=== PATIENT | male | born 1960 | race Caucasian/White ===

== ENCOUNTER 2023-05-21 02:35 | Day surgery (SDC) | payer BC, SELFPAY ==
[2023-05-14 12:16] VITALS: BMI 23.6
--- NOTE | 2023-05-14 12:20 | PC.NURSE ---
Report to the Outpatient Waiting Room, entrance under the green pavilion located off [facility], at time 0730 on date 05/21/23. Planned Procedure Time: 0830. Time changes happen often and if your time is changed the preop area will call you the afternoon before. - You and your visitor will be asked to self-screen and do not enter if you have any COVID symptoms. - A mask is optional within the hospital at this time. Patients may have LIGHT BREAKFAST. Take the following medications with a SIP of water the morning of surgery: N/A DO NOT STOP ANY OF YOUR OTHER PRESCRIPTION MEDICATIONS PRIOR TO SURGERY ?EXCEPT THE FOLLOWING Medications to discontinue per physician: N/A Date to take last dose: N/A Please no make-up, nail somali, hairspray, perfume, deodorant, or body powder the day of surgery. No jewelry (including any body piercings) or valuables the day of surgery, leave them at home. Please take a shower or bath the night before, or the morning of, surgery with an antibacterial soap. Wear comfortable, loose fitting clothing. - Jewelry must be removed prior to entering the operating room. Rings and piercings that are not removed may be cut off. - The hospital will not accept responsibility for valuables. - Please leave all valuables, including medications, at home the day of surgery. YOU MAY DRIVE YOURSELF HOME AFTER SURGERY. Follow any additional instructions given to you from your surgeon. If you or anyone in your household have experienced Covid symptoms in the past week, please notify your surgeon or the nurse liaison at the phone number below for possible testing. Telephone instructions given to PT - EMETERIO CHAN and asked if any additional questions and then verbalized understanding. Patient advised to call surgeon office or pre surgery nurse liaison [phone] if any additional questions.
[2023-05-21] VITALS (9 sets, daily range): BP systolic 120–130; BP diastolic 56–65; PULSE 67–73; RESP 16–20; TEMP 36.5; O2SAT 91–95
--- NOTE | 2023-05-21 07:16 | WPDHPUPDATE1 ---
History and Physical Update Update Date/Time: 05/21/23 07:16 History and Physical has been reviewed, including an updated exam of the patient. There are NO changes in the patient's condition. Risks, benefits, and alternatives have been discussed and questions answered. Patient agrees to proceed with procedure.
[2023-05-21] MEDS: BACITRACIN OINTMENT 15 GM TUBE 1 APPLIC TOPICAL (07:29)
[2023-05-21] MEDS: LIDO 1%/EPINEPHRINE 1:100,000 50 ML VIAL 12 ML INFILTRATE (07:29)
--- NOTE | 2023-05-21 09:10 | P.OP_ITS ---
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 He was taken to the operating room and was placed supine on the operating table. He was given IV sedation and the entire head was prepped and draped in usual fashion. The site was carefully marked for the incision. A time-out was held and confirmed. The area was infiltrated with 1% lidocaine with epinephrine for total 7 milliliter. The patient was prepared for excision of this and direct closure if possible oth erwise secondary healing. The circular excision was carried out to the level of the g[place]a and the specimen sent to pathology with a 12:00 p.m. anterior point marked. Pathologist reports margins were free the diagnosis is pending permanent sections. The wound was extensively undermined more than 2 cm in all directions. Stretching of the tissue for about 5 minutes was applied while l we waited for pathology report. When it seemed no more stretch was possible the wound closure was begun with 2-0 nylon. This was accomplished carefully and slowly and about 95% the wound was closed. The wound was dressed with a strip of Mepilex Ag taped to the head directly over the incision line. Some the material is being sent to the patient dressing change if needed. The was discharged from the operating room stable condition it was less than 5 milliliter of bleeding. Estimated Blood Loss 5 Drains No Packing No Pathology Yes Complications No immediate complications Condition Stable Disposition Same day
== END 2023-05-21 09:22 | disposition home or self-care (01) ==
PROVIDERS: PCP Emergency Medicine; Visit Provider Plastic Surgery
PROC: (CPT 11422; principal; 2023-05-21 07:30)
DX: D23.4 Other benign neoplasm of skin of scalp and neck (principal); F17.210 Nicotine dependence, cigarettes, uncomplicated
CPT/HCPCS: 11422; 12032; 88305; 88331; A9270